=== PATIENT | male | born 1975 | race Caucasian/White ===

== ENCOUNTER 2023-01-08 19:30 | Emergency (ER) | payer SELFPAY ==
[2023-01-08 19:38] VITALS: BP 137/87; PULSE 82; RESP 18; TEMP 36.9; O2SAT 95
--- NOTE | 2023-01-08 20:20 | ED.LOWEXI1 ---
HPI - Extremity Injury (Lower) General Chief Complaint: Extremity Injury, Lower Stated Complaint: LOWER EXTREMITY PAIN Time Seen by Provider: 01/08/23 20:16 Source: patient Mode of arrival: walk-in Limitations: no limitations History of Present Illness HPI Narrative: about a month ago, the patient accidentally dropped a heavy object onto his left great toe. he had pain and the nail bruised but he thought he was doing ok and that it was healing. But then he developed pain, redness and swelling along the nail edge of the left great toe. He now presents for evaluation. No systemic symptoms such as fever or vomiting. Related Data Allergies Allergy/AdvReac Type Severity Reaction Status Date / Time No Known Drug Allergies Allergy Verified 01/08/23 19:43 PFSH PFSH Social History Smoking status: Never smoker Exam Narrative Exam Narrative: Nurses notes and vital signs reviewed and patient is not hypoxic. afebrile General: Well-appearing and in no apparent distress. Skin: Warm, dry, no pallor noted. No rash. Head: Normocephalic, atraumatic. Eye: Pupils are equal, round and EOMI. No scleral icterus. Cardiovascular: normal peripheralm perfusion. Respiratory: No accessory muscle use or respiratory distress. Lungs are clear to auscultation, no wheezing, rales or rhonchi Musculoskeletal: paronychia left great toe along nail edge - erythema, swelling and tenderness with yellowish discoloration under the nail proximally Left foot with normal ROM, no lower extremity edema/swelling Neurological: A&O x4. No cranial nerve dysfunction observed. No truncal ataxia. Moves all extremities. Sensation intact. Psychiatric: Cooperative and interactive. Normal mood and affect. Constitutional Vital Signs - 24 hr 01/08/23 19:38 Temperature 98.4 F Pulse Rate [Monitor] 82 Respiratory Rate 18 Blood Pressure [Right Arm] 137/87 H Pulse Oximetry 95 Oxygen Delivery Method Room Air Course Vital Signs Vital signs: Vital Signs Temperature 98.4 F 01/08/23 19:38 Pulse Rate 82 01/08/23 19:38 Respiratory Rate 18 01/08/23 19:38 Blood Pressure 137/87 H 01/08/23 19:38 Pulse Oximetry 95 01/08/23 19:38 Oxygen Delivery Method Room Air 01/08/23 19:38 Temperature 98.4 F 01/08/23 19:38 Pulse Rate 82 01/08/23 19:38 Respiratory Rate 18 01/08/23 19:38 Blood Pressure 137/87 H 01/08/23 19:38 Pulse Oximetry 95 01/08/23 19:38 Oxygen Delivery Method Room Air 01/08/23 19:38 MDM - Extremity Injury (Lower) MDM Narrative Medical decision making narrative: patient with parynochia. see I&D note. patient given bactrim and keflex and norco in the ED and was discharged with Keflex, Bactrim and a short course of analgesic medications. Patient is to return to the ED to have area evaluated if it worsens. Discharge Plan Discharge Chief Complaint: Extremity Injury, Lower Clinical Impression: Paronychia of great toe of left foot Patient Disposition: Home, Self-Care Time of Disposition Decision: 21:00 Instructions: Paronychia (ED), Incision and Drainage (ED) Stand Alone Forms: Portal Instructions Referrals: Physician,Non-Staff, MD [Primary Care Provider] - 1 week Procedures ED Procedure Instructions Procedures Procedures: Incision and drainage: A single layer of iodine was used to prep the area. Local application of 0.5mL of 1% lidocaine without epinephrine was used to obtain field of anesthesia. Incision was made with an 11 blade to the full dimension of the abscess, very small amount purulent material was expressed. Culture was obtained and sent to the lab. The paronychia did not extend and therefore no packing or deloculation was needed A dry sterile dressing was placed. Patient tolerated the procedure well
[2023-01-08 21:12] VITALS: BP 137/80; PULSE 78; O2SAT 95
[2023-01-08] MEDS: CEPHALEXIN 500 MG CAPSULE PO (21:13)
[2023-01-08] MEDS: SULFAMETHOXAZOLE/TRIMETHOPRIM 800-160 MG TABLET 1 TAB PO (21:13)
[2023-01-08] MEDS: HYDROCODONE/ACETAMINOPHEN 5-325 MG TABLET 1 TAB PO (21:14)
[2023-01-08 21:29] VITALS: BP 127/94
== END 2023-01-08 21:30 | disposition home or self-care (01) ==
PROVIDERS: Emergency Provider Emergency Medicine
DX: L03.032 Cellulitis of left toe (principal)
CPT/HCPCS: 10060; 87070; 87205; 99284